=== PATIENT | male | born 1960 | race Caucasian/White ===

== ENCOUNTER 2017-07-06 21:53 | Emergency (ER) | payer SELFPAY ==
[~2017-07-06] VITALS: Ht 167.6 cm; Wt 85.1 kg
[2017-07-06 21:55] VITALS: BP 127/85; PULSE 108; RESP 20; TEMP 98.3; O2SAT 97
[2017-07-06] MEDS ORDERED: ACETAMINOPHEN/HYDROcodone 325 MG/5 MG TAB PO ONE (22:30)
[2017-07-06] MEDS ORDERED: LIDOCAINE HCL 1% 20 ML VIAL INFIL ONE (22:30)
[2017-07-06] MEDS ORDERED: LIDOCAINE HCL 1% PF 30 ML VIAL ONE (22:34)
--- NOTE | 2017-07-06 23:10 | RADRPT ---
EXAM DATE/TIME: 07/06/2017 22:39 [place] COMPARISON: No previous studies available for comparison. INDICATIONS : Posterior right elbow swelling for 3 weeks. No injury. MEDICAL HISTORY : None. SURGICAL HISTORY : None. ENCOUNTER: Initial ACUITY: 3 weeks PAIN SCORE: 5/10 LOCATION: Right posterior elbow. FINDINGS: Two view examination of the right elbow demonstrates no fracture or malalignment. There is soft tissu e swelling over the olecranon. There are no radiopaque foreign bodies. Bony mineralization is normal. CONCLUSION: Focal soft tissue swelling over the olecranon which could indicate an olecranon bursitis. Jake Clark MD on July 06, 2017 at 23:08 Board Certified Radiologist. This report was verified electronically.
--- NOTE | 2017-07-07 00:25 | PD ---
HPI Chief Complaint: Edema Time Seen by Provider: 22:20 Travel History International Travel<30 days: No Contact w/Intl Traveler<30days: No Traveled to known affect area: No History of Present Illness HPI 56yo M with no PMH presents to the ED with c/o right elbow swelling for 3 weeks. Said the soft tissue swelling is painful and not really pain in the elbow. Denies any fever, trauma, chest pain, sob, n/v, abdominal pain, focal weakness or numbness. Pt does go fishing a lot. PFSH Past Medical History Medical History: Denies Significant Hx Diminished Hearing: No Genitourinary: No Immunizations Current: Yes Tetanus Vaccination: > 5 Years Influenza Vaccination: No Past Surgical History Oral Surgery: Yes Other Surgery: Yes (L3-L4-L5 - 2000) Social History Alcohol Use: No Tobacco Use: Yes (1 PPD) Substance Use: No Allergies-Medications (Allergen,Severity, Reaction): Coded Allergies: No Known Allergies (Verified Adverse Reaction, Unknown, 07/06/17) Reported Meds & Prescriptions Reported Meds & Active Scripts Active No Active Prescriptions or Reported Medications Review of Systems Except as stated in HPI: all other systems reviewed are Neg Physical Exam Narrative GENERAL: 56yo M not in distress. SKIN: Focused skin assessment warm/dry. HEAD: Atraumatic. Normocephalic. EYES: Pupils equal and round. No scleral icterus. No injection or drainage. ENT: No nasal bleeding or discharge. Mucous membranes pink and moist. GASTROINTESTINAL: Abdomen soft, non-tender, nondistended. MUSCULOSKELETAL: Right elbow: +Soft tissue edema from olecranon to ulnar around 10cm by 3cm that is not erythematous. +Fluctuance. Mild warmth to palpation. FROM in right elbow. Distal pulses intact. Sensation intact. NEUROLOGICAL: Awake and alert. No obvious cranial nerve deficits. Motor grossly within normal limits. Normal speech. PSYCHIATRIC: Appropriate mood and affect; insight and judgment normal. Data Data Last Documented VS Vital Signs Date Time Temp Pulse Resp B/P (MAP) Pulse Ox O2 Delivery O2 Flow Rate FiO2 07/07/17 00:42 98.3 90 18 104/73 (83) 97 Orders Orders Elbow, Limited (Ap&Lat) (07/06/17 ) Acetamin-Hydrocod 325-5 Mg ([place] 5-325 (07/06/17 22:30) Lidocaine 1% Inj (Xylocaine 1% Inj) (07/06/17 22:30) Lidocaine Pf 1% Inj (Xylocaine-Mpf 1% In (07/06/17 22:34) Ed Poc Ultrasound (07/06/17 ) Ed Discharge Order (07/07/17 00:26) [facility] Medical Decision Making Medical Screen Exam Complete: Yes Emergency Medical Condition: Yes Interpretation(s) Last Impressions Elbow X-Ray 07/06/17 0000 Signed Impressions: Service Date/Time: Thursday, July 06, 2017 22:39 - CONCLUSION: Focal soft tissue swelling over the olecranon which could indicate an olecranon bursitis. Jake Clark MD Differential Diagnosis Bursitis vs. abscess vs. tumor vs. hematoma Narrative Course 56yo M right elbow swelling. Denies any trauma but pt goes fishing a lot. Impression is more bursitis. Do not think this is septic as pt has no fever and nontoxic appearing. Pt able to fully flex and extend elbow. Xray right elbow showed focal soft tissue swelling over the olecranon which could indicate an olecranon bursitis. Pt is insisting on having it drained for symptomatic relief so I performed bedside ultrasound and there is a large collection of fluid. Drainage was done for symptomatic relief. Fluid is serosanguinous and there is no pus. Soft tissue swelling resolved after drainage and pt feels much better. Return precautions given. Procedures Procedure Narrative Emergency department soft-tissue/musculoskeletal ultrasound was performed with patient consent. Linear probe was used in the transverse and sagittal views in the area of interest showed positive fluid. Drainage of soft tissue fluctuance in right elbow: Area was clean with betadine. 5cc of 1% lidocaine used to anesthesize area. 18 gauge needle was used and 36cc of serosanguinous fluid aspirated. Pt tolerated procedure well. Diagnosis Primary Impression: Olecranon bursitis Qualified Codes: M70.21 - Olecranon bursitis, right elbow Referrals: Pedro Lane MD as needed Patient Instructions: General Instructions Departure Forms: Tests/Procedures Additional Instructions: Please follow up with orthopedic clinic if symptoms return. Return to the ED if symptoms worsen. Med/Other Pt SpecificInfo: No Change to Meds Scripts No Active Prescriptions or Reported Meds Disposition: DISCHARGE HOME Condition: Stable Fernandez,Shreya DO Jul 07, 2017 00:25
[2017-07-07 00:41] VITALS: RESP 18
[2017-07-07 00:42] VITALS: BP 104/73; TEMP 98.3
== END 2017-07-07 00:44 | disposition home or self-care (01) ==
LOC: PHEFT 21:53
DX: M70.21 Olecranon bursitis, right elbow (principal); F17.200 Nicotine dependence, unspecified, uncomplicated
CPT/HCPCS: 20606; 73070